=== PATIENT | female | born 1950 | race Caucasian/White ===

== ENCOUNTER 2022-01-06 07:24 | Outpatient (CLI) | payer OTHER | END 2022-01-06 07:26 | disposition home or self-care (01) | LOC: EDBD 07:24 → RX STUDY 07:24 | PROVIDERS: ATTEND Internal Medicine Gastroenterology | DX: K21.9 Gastro-esophageal reflux disease without esophagitis (principal); R10.13 Epigastric pain; R13.10 Dysphagia, unspecified ==